=== PATIENT | female | born 1990 | race Caucasian/White ===

== ENCOUNTER 2017-11-11 11:13 | Emergency (ER) | payer MEDICAID ==
[~2017-11-11 11:13] MED LIST: CYCL10TA29 PO; HYDR-4309 PO; ONDA4TAB PO; PRED20TA6 PO; TEST30SO3 IM
--- NOTE | 2017-11-11 11:14 | ER Report ---
History and Physical Time Seen By MD: 11:18 Hx. of Stated Complaint: Migraine headache HPI/ROS Patient is a 27-year-old transgender female long history of migraines states normally takes [place] at home for migraines was nauseated would not able to take this at home since this is his typical headache intermittent right parietal headache has had recent CT scan per patient Remainder of the 14 system rev: Yes Allergies: Coded Allergies: amoxicillin (Verified Allergy, Mild, 07/08/17) metoclopramide (Verified Allergy, Mild, 07/08/17) prochlorperazine (Verified Allergy, Mild, 07/08/17) azithromycin (Verified Allergy, Unknown, 08/11/17) ketorolac (Verified Allergy, Unknown, 08/11/17) Home Meds Active Scripts Ondansetron (ZOFRAN ODT) 4 Mg Tab.rapdis, 4 MG PO Q6H Y for NAUSEA/VOMITING, # 20 TAB.ÁNGEL Prov:ERNESTINE MCBRIDE 11/11/17 Hydrocodone Bit/Acetaminophen (NORCO 5-325 TABLET) 1 Each Tablet, 1 EACH PO Q4- 6H Y for PAIN, #12 TAB Prov:ERNESTINE MCBRIDE APRN-C 11/11/17 Discontinued Reported Medications Testosterone (Testosterone) 30 Mg/1.5 Ml Per Actuation Ángel.heat treater head, 0.3 ML IM QWEEK 07/08/17 Discontinued Scripts Ondansetron (ZOFRAN ODT) 4 Mg Tab.rapdis, 4 MG PO Q6H Y for NAUSEA/VOMITING, #8 TAB.ÁNGEL Prov:CHRIS LEUNG PA-C 08/11/17 Hydrocodone Bit/Acetaminophen (NORCO 5-325 TABLET) 1 Each Tablet, 1 EACH PO Q4- 6H Y for PAIN, #12 TAB Prov:CHRIS LEUNG PA-C 08/11/17 Prednisone (PREDNISONE) 20 Mg Tablet, 20 MG PO BID, #10 TAB Prov:WILLIE TRINH 07/08/17 Cyclobenzaprine Hcl (CYCLOBENZAPRINE HCL) 10 Mg Tablet, 5-10 MG PO TID Y for MUSCLE SPASMS, #9 TAB Prov:WILLIE TRINH 07/08/17 Past Medical/Surgical History transgender, not currently on testosterone , migraines Reviewed Nurses Notes: Yes Old Medical Records Reviewed: Yes Hx Alcohol Use: Yes (occasional) Constitutional Vital Sign - Last 24 Hours 11/11/17 11/11/17 11/11/17 11/11/17 11:16 11:17 11:18 11:23 Temp 97.6 Pulse 91 90 Resp 20 22 B/P (MAP) 99/76 (84) 99/76 Pulse Ox 95 100 O2 Delivery Room Air 11/11/17 11/11/17 11/11/17 11/11/17 11:24 11:28 11:30 11:33 Pulse 85 84 Resp 27 B/P (MAP) 103/72 (82) 113/72 (86) Pulse Ox 94 93 11/11/17 11/11/17 11/11/17 11/11/17 11:38 11:43 11:48 11:53 Pulse 79 82 68 67 Pulse Ox 93 95 96 96 11/11/17 11/11/17 11/11/17 11/11/17 11:58 12:00 12:03 12:08 Pulse 73 67 B/P (MAP) 107/72 (84) Pulse Ox 98 92 90 11/11/17 11/11/17 11/11/17 11/11/17 12:18 12:23 12:28 12:33 Pulse 70 59 67 B/P (MAP) 106/67 (80) Pulse Ox 95 95 95 95 11/11/17 11/11/17 11/11/17 11/11/17 12:48 12:53 12:58 13:00 Pulse 66 61 B/P (MAP) 103/71 (82) Pulse Ox 95 96 97 11/11/17 11/11/17 11/11/17 11/11/17 13:03 13:08 13:13 13:22 Pulse 63 63 68 B/P (MAP) 99/68 (78) Pulse Ox 95 94 94 11/11/17 13:23 Pulse 63 B/P (MAP) 99/68 (78) Pulse Ox 94 O2 Delivery Room Air Physical Exam 27-year-old female transgender alert and oriented no acute distress HEENT has normocephalic/atraumatic tympanic membranes are non-reddened throat is non- reddened neck is supple no JVD heart rate regular no murmurs rubs or gallops lungs clear to auscultation abdomen is soft bowel sounds 4 quadrants moves all extremities Medical Decision Making Data Points Result Diagram: 11/11/17 1144 Laboratory Hematology Test 11/11/17 11:44 Red Blood Count 5.18 M/uL (4.17-5.56) Mean Corpuscular Volume 92.2 fL (80.0-96.0) Mean Corpuscular Hemoglobin 31.2 pg (26.0-33.0) Mean Corpuscular Hemoglobin Concent 33.9 g/dL (32.0-36.0) Red Cell Distribution Width 13.2 % (11.5-14.5) Mean Platelet Volume 8.4 fL (7.2-11.1) Neutrophils (%) (Auto) 58.6 % (39.4-72.5) Lymphocytes (%) (Auto) 30.1 % (17.6-49.6) Monocytes (%) (Auto) 9.3 % (4.1-12.4) Eosinophils (%) (Auto) 1.2 % (0.4-6.7) Basophils (%) (Auto) 0.0 % (0.3-1.4) Nucleated RBC Relative Count (auto) 0.2 /100WBC Neutrophils # (Auto) 2.7 K/uL (2.0-7.4) Lymphocytes # (Auto) 1.4 K/uL (1.3-3.6) Monocytes # (Auto) 0.4 K/uL (0.3-1.0) Eosinophils # (Auto) 0.1 K/uL (0.0-0.5) Basophils # (Auto) 0.0 K/uL (0.0-0.1) Nucleated RBC Absolute Count (auto) 0.01 K/uL Erythrocyte Sedimentation Rate 5 mm/HOUR (0-20) Chemistry Test 11/11/17 11:44 White Blood Count 4.6 k/uL (4.5-11.0) Red Blood Count 5.18 M/uL (4.17-5.56) Hemoglobin 16.2 g/dL (12.0-16.0) Hematocrit 47.8 % (34.0-47.0) Mean Corpuscular Volume 92.2 fL (80.0-96.0) Mean Corpuscular Hemoglobin 31.2 pg (26.0-33.0) Mean Corpuscular Hemoglobin Concent 33.9 g/dL (32.0-36.0) Red Cell Distribution Width 13.2 % (11.5-14.5) Platelet Count 237 K/uL (150-450) Mean Platelet Volume 8.4 fL (7.2-11.1) Neutrophils (%) (Auto) 58.6 % (39.4-72.5) Lymphocytes (%) (Auto) 30.1 % (17.6-49.6) Monocytes (%) (Auto) 9.3 % (4.1-12.4) Eosinophils (%) (Auto) 1.2 % (0.4-6.7) Basophils (%) (Auto) 0.0 % (0.3-1.4) Nucleated RBC Relative Count (auto) 0.2 /100WBC Neutrophils # (Auto) 2.7 K/uL (2.0-7.4) Lymphocytes # (Auto) 1.4 K/uL (1.3-3.6) Monocytes # (Auto) 0.4 K/uL (0.3-1.0) Eosinophils # (Auto) 0.1 K/uL (0.0-0.5) Basophils # (Auto) 0.0 K/uL (0.0-0.1) Nucleated RBC Absolute Count (auto) 0.01 K/uL Erythrocyte Sedimentation Rate 5 mm/HOUR (0-20) EKG/Imaging Imaging FACILITY: [facility] [place] PATIENT NAME: Antoinette Baldwin : 1990 MR: [id number] V: [id number] EXAM DATE: ORDERING PHYSICIAN: ERNESTINE MCBRIDE TECHNOLOGIST: [place] [facility] [place] : 1990 Visit/Account:[id number] Date of Sevice: 11/11/2017 CT OF THE BRAIN WITHOUT CONTRAST HISTORY: Headache PROCEDURE: 3.0 mm contiguous axial sections were performed through the brain. Sagittal and coronal reformats were submitted. COMPARISON: None FINDINGS: BRAIN: Brain and intracranial structures: There is no mass lesion, hemorrhage or acute infarct. The ventricles are normal in size without midline shift. There is significant streak artifact from the device on the right temporoparietal scalp. Orbits (included portions): Normal. Scalp: Normal. Skull: Normal. Paranasal sinuses and mastoid air cells (included portions): Mild mucosal thickening in the right maxillary sinus. IMPRESSION: No evidence of acute intracranial abnormality. One of the following dose optimization techniques was utilized in the performance of this exam: Automated exposure control; adjustment of the mA and/ or kV according to the patient's size; or use of an iterative reconstruction technique. Specific details can be referenced in the facility's radiology CT exam operational policy. Report Dictated By: Vonnie Herrera MD at 11/11/2017 12:58 PM Report E-Signed By: Vonnie Herrera MD at 11/11/2017 1:06 PM ED Course/Re-evaluation Clinical Indication for ER IV: Hydration ED Course Given a liter of normal saline then 50 g Zofran 4 mg and negative lab work negative CT head send him home with medication for pain and nausea follow with primary care physician Re-evaluation pain much better . home and rest today Decision to Disposition Date: Nov 11, 2017 Decision to Disposition Time: 13:15 Depart Departure Latest Vital Signs Vital Signs Date Time Temp Pulse Resp B/P (MAP) Pulse Ox O2 Delivery O2 Flow Rate FiO2 11/11/17 13:23 63 99/68 (78) 94 Room Air 11/11/17 11:28 27 11/11/17 11:17 97.6 Impression: Primary Impression: Migraine Condition: Improved Disposition: HOME OR SELF-CARE Referrals: [facility] 2 Days New Scripts Ondansetron (ZOFRAN ODT) 4 Mg Tab.rapdis 4 MG PO Q6H Y for NAUSEA/VOMITING, #20 TAB.ÁNGEL Prov: ERNESTINE MCBRIDE 11/11/17 Hydrocodone Bit/Acetaminophen (NORCO 5-325 TABLET) 1 Each Tablet 1 EACH PO Q4-6H Y for PAIN, #12 TAB Prov: ERNESTINE MCBRIDE 11/11/17 Patient Instructions: Migraine Headache (ED) Additional Instructions: Take hydrocodone and Zofran as ordered follow-up with primary care physician in 2 days ERNESTINE MCBRIDE Nov 11, 2017 11:14
[2017-11-11] MEDS ORDERED: NS(*) 0.9% 1000 ML BAG 1,000 ML IV ONE (11:31)
[2017-11-11] MEDS ORDERED: ONDANSETRON 4 MG/2 ML VIAL IVP ONE (11:35)
[2017-11-11] MEDS ORDERED: fentaNYL CITR 100 MCG/2 ML AMP IVP ONE (11:35)
[2017-11-11 12:11] LABS: PLATELET COUNT, AUTOMATED 237 K/uL (150-450)
--- NOTE | 2017-11-11 13:09 | RADIOLOGY IMAGING REPORT ---
[place] [facility] [place]: Antoinette Baldwin : 1990 MR: [id number] V: [id number] EXAM DATE: ORDERING PHYSICIAN: ERNESTINE MCBRIDE TECHNOLOGIST: Location: [facility] Patient: Antoinette Baldwin : 1990 Visit/Account:[id number] Date of Sevice: 11/11/2017 CT OF THE BRAIN WITHOUT CONTRAST HISTORY: Headache PROCEDURE: 3.0 mm contiguous axial sections were performed through the brain. Sagittal and coronal r eformats were submitted. COMPARISON: None FINDINGS: BRAIN: Brain and intracranial structures: There is no mass lesion, hemorrhage or acute infarct. The ventricl es are normal in size without midline shift. There is significant streak artifact from the device on the right temporoparietal scalp. Orbits (included portions): Normal. Scalp: Normal. Skull: Normal. Paranasal sinuses and mastoid air cells (included portions): Mild mucosal thickening in the right max illary sinus. IMPRESSION: No evidence of acute intracranial abnormality. One of the following dose optimization techniques was utilized in the performance of this exam: Autom ated exposure control; adjustment of the mA and/or kV according to the patient's size; or use of an i terative reconstruction technique. Specific details can be referenced in the facility's radiology C T exam operational policy. Report Dictated By: Vonnie Herrera MD at 11/11/2017 12:58 PM Report E-Signed By: Vonnie Herrera MD at 11/11/2017 1:06 PM WSN:[id number]
[2017-11-11] MEDS ORDERED: ONDA4TAB PO (13:19)
[2017-11-11] MEDS ORDERED: HYDR-4309 PO (13:19)
[2017-11-11 13:23] VITALS: BP 99/68
== END 2017-11-11 13:35 | disposition home or self-care (01) ==
LOC: ER 11:19
DX: G43.909 Migraine, unspecified, not intractable, without status migrainosus (principal)
CPT/HCPCS: 70450; 85025; 85651; 96361; 96374; 96375; 99284; J2405; J3010; J7030

== ENCOUNTER 2018-01-18 23:18 | Emergency (ER) | payer MEDICAID ==
[~2018-01-18 23:18] MED LIST changes: -LOR5/325 PO
--- NOTE | 2018-01-19 00:38 | ER Report ---
History and Physical Time Seen By MD: 00:37 HPI/ROS CHIEF COMPLAINT: abdominal pain HISTORY OF PRESENT ILLNESS: This is a 27 year old female. She had onset of left lower abdominal pain yesterday. Pain does not radiate. It does worsen with movement. No changes in bowel movements, two normal movements today, no diarrhea. No blood in stool or melena. Normal urination. Has had similar pain in the past, unknown cause. Has had muscle spasms in the past. Currently on testosterone therapy for changing sex. No fevers or chills. REVIEW OF SYSTEMS: Constitutional: No fever or chills. Eyes: No vision changes. ENT: No sore throat. No congestion. Cardiovascular: No chest pain. Respiratory: No shortness of breath. Gastrointestinal: As above. Genitourinary: As above. Musculoskeletal: No other musculoskeletal pain. Skin: No rashes. Allergies: Coded Allergies: amoxicillin (Verified Allergy, Mild, 01/19/18) metoclopramide (Verified Allergy, Mild, 01/19/18) prochlorperazine (Verified Allergy, Mild, 01/19/18) azithromycin (Verified Allergy, Unknown, 01/19/18) ketorolac (Verified Allergy, Unknown, 01/19/18) Home Meds Active Scripts Ondansetron (ZOFRAN ODT) 4 Mg Tab.rapdis, 4 MG PO Q6H Y for NAUSEA/VOMITING, # 20 TAB.ÁNGEL 0 Refills Prov:NEVA KNOX MD 01/19/18 Hydrocodone Bit/Acetaminophen (HYDROCODON-ACETAMINOPHEN 5-325) 1 Each Tablet, 1 EACH PO Q4H Y for PAIN, #12 TAB 0 Refills Prov:NEVA KNOX MD 01/19/18 Discontinued Scripts Ondansetron (ZOFRAN ODT) 4 Mg Tab.rapdis, 4 MG PO Q6H Y for NAUSEA/VOMITING, # 20 TAB.ÁNGEL Prov:ERNESTINE MCBRIDE APRN-C 11/11/17 Hydrocodone Bit/Acetaminophen (NORCO 5-325 TABLET) 1 Each Tablet, 1 EACH PO Q4- 6H Y for PAIN, #12 TAB Prov:ERNESTINE MCBRIDE APRN-C 11/11/17 Reviewed Nurses Notes: Yes Hx Alcohol Use: Yes (occasional) Constitutional Vital Sign - Last 24 Hours 4/1/01/19/18 01/19/18 01/19/18 00:18 00:28 00:33 01:03 Temp 98.5 Pulse ??? 84 84 80 Resp 16 B/P (MAP) 113/75 Pulse Ox 93 94 92 93 O2 Delivery Room Air 01/19/18 01/19/18 01/19/18 01/19/18 01:20 03:30 03:45 03:50 Pulse 94 70 67 71 Pulse Ox 91 90 89 01/19/18 01/19/18 01/19/18 01/19/18 04:05 04:20 04:35 05:33 Pulse 79 76 61 B/P (MAP) 102/62 (75) Pulse Ox 90 92 91 01/19/18 01/19/18 05:35 05:50 Pulse 66 58 Pulse Ox 94 91 Physical Exam General Appearance: The patient is alert. No acute distress. Eyes: Pupils are equal, round. No pallor, injection or icterus. ENT: Mucous membranes are moist. Normal oral mucosa. Posterior oropharynx is normal. Neck: Supple and non tender. Respiratory: Breathing easily and unlabored. Lungs are clear to auscultation. Cardiovascular: Regular rate and rhythm. No murmurs, gallops or rubs. Normal capillary refill. Gastrointestinal: Abdomen is tender in left lower abdomen. Nondistended. No rebound or guarding. Neurological: Alert and oriented x3. No focal neurologic deficits Skin: Warm and dry. DIFFERENTIAL DIAGNOSIS: After history and physical exam, differential diagnosis was considered for abdominal pain including but not limited to gastroenteritis, diverticulitis, ovarian problems, and urinary tract infection. Medical Decision Making Data Points Result Diagram: 01/19/18 0053 01/19/18 0053 Laboratory Hematology Test 01/19/18 00:53 01/19/18 05:32 Red Blood Count 5.18 M/uL (4.17-5.56) Mean Corpuscular Volume 89.6 fL (80.0-96.0) Mean Corpuscular Hemoglobin 30.8 pg (26.0-33.0) Mean Corpuscular Hemoglobin Concent 34.3 g/dL (32.0-36.0) Red Cell Distribution Width 14.2 % (11.5-14.5) Mean Platelet Volume 8.5 fL (7.2-11.1) Neutrophils (%) (Auto) 45.4 % (39.4-72.5) Lymphocytes (%) (Auto) 40.0 % (17.6-49.6) Monocytes (%) (Auto) 11.0 % (4.1-12.4) Eosinophils (%) (Auto) 2.7 % (0.4-6.7) Basophils (%) (Auto) 0.9 % (0.3-1.4) Nucleated RBC Relative Count (auto) 0.1 /100WBC Neutrophils # (Auto) 3.1 K/uL (2.0-7.4) Lymphocytes # (Auto) 2.8 K/uL (1.3-3.6) Monocytes # (Auto) 0.8 K/uL (0.3-1.0) Eosinophils # (Auto) 0.2 K/uL (0.0-0.5) Basophils # (Auto) 0.1 K/uL (0.0-0.1) Nucleated RBC Absolute Count (auto) 0.00 K/uL Sodium Level 141 mmol/L (137-145) Potassium Level 3.4 mmol/L (3.5-5.0) Chloride Level 103 mmol/L (98-107) Carbon Dioxide Level 27 mmol/L (22-31) Blood Urea Nitrogen 14 mg/dl (7-18) Creatinine 0.80 mg/dl (0.52-1.04) Glomerular Filtration Rate Calc > 60.0 Random Glucose 110 mg/dl (75-110) Calcium Level 9.1 mg/dl (8.4-10.2) Total Bilirubin 0.4 mg/dl (0.2-1.3) Aspartate Amino Transf (AST/SGOT) 23 U/L (0-35) Alanine Aminotransferase (ALT/SGPT) 22 U/L (0-56) Alkaline Phosphatase 92 U/L (0-126) C-Reactive Protein < 0.5 mg/dl (<1.0) Total Protein 7.1 gm/dl (6.3-8.2) Albumin 4.0 g/dl (3.5-5.0) Human Chorionic Gonadotropin, Qual Negative (NEGATIVE) Urine Color Yellow Urine Clarity Cloudy Urine pH 7.0 pH (4.8-9.5) Urine Specific [place] 1.059 Urine Protein Negative mg/dL (NEGATIVE) Urine Glucose (UA) Negative mg/dL (NEGATIVE) Urine Ketones Negative mg/dL (NEGATIVE) Urine Blood Negative (NEGATIVE) Urine Nitrite Negative (NEGATIVE) Urine Bilirubin Negative (NEGATIVE) Urine Urobilinogen Negative mg/dL (0.2-1.9) Urine Leukocyte Esterase Small (NEGATIVE) Urine RBC 2 /HPF (0-2/HPF) Urine WBC 10 /HPF (0-5/HPF) Urine Squamous Epithelial Cells Moderate /LPF (</=FEW) Urine Bacteria Negative /HPF (NONE-FEW) Urine Mucus None /HPF (NONE-FEW) Urine Yeast (Budding) Many /HPF Chemistry Test 01/19/18 00:53 01/19/18 05:32 White Blood Count 6.9 k/uL (4.5-11.0) Red Blood Count 5.18 M/uL (4.17-5.56) Hemoglobin 15.9 g/dL (12.0-16.0) Hematocrit 46.5 % (34.0-47.0) Mean Corpuscular Volume 89.6 fL (80.0-96.0) Mean Corpuscular Hemoglobin 30.8 pg (26.0-33.0) Mean Corpuscular Hemoglobin Concent 34.3 g/dL (32.0-36.0) Red Cell Distribution Width 14.2 % (11.5-14.5) Platelet Count 213 K/uL (150-450) Mean Platelet Volume 8.5 fL (7.2-11.1) Neutrophils (%) (Auto) 45.4 % (39.4-72.5) Lymphocytes (%) (Auto) 40.0 % (17.6-49.6) Monocytes (%) (Auto) 11.0 % (4.1-12.4) Eosinophils (%) (Auto) 2.7 % (0.4-6.7) Basophils (%) (Auto) 0.9 % (0.3-1.4) Nucleated RBC Relative Count (auto) 0.1 /100WBC Neutrophils # (Auto) 3.1 K/uL (2.0-7.4) Lymphocytes # (Auto) 2.8 K/uL (1.3-3.6) Monocytes # (Auto) 0.8 K/uL (0.3-1.0) Eosinophils # (Auto) 0.2 K/uL (0.0-0.5) Basophils # (Auto) 0.1 K/uL (0.0-0.1) Nucleated RBC Absolute Count (auto) 0.00 K/uL Glomerular Filtration Rate Calc > 60.0 Calcium Level 9.1 mg/dl (8.4-10.2) Total Bilirubin 0.4 mg/dl (0.2-1.3) Aspartate Amino Transf (AST/SGOT) 23 U/L (0-35) Alanine Aminotransferase (ALT/SGPT) 22 U/L (0-56) Alkaline Phosphatase 92 U/L (0-126) C-Reactive Protein < 0.5 mg/dl (<1.0) Total Protein 7.1 gm/dl (6.3-8.2) Albumin 4.0 g/dl (3.5-5.0) Human Chorionic Gonadotropin, Qual Negative (NEGATIVE) Urine Color Yellow Urine Clarity Cloudy Urine pH 7.0 pH (4.8-9.5) Urine Specific [place] 1.059 Urine Protein Negative mg/dL (NEGATIVE) Urine Glucose (UA) Negative mg/dL (NEGATIVE) Urine Ketones Negative mg/dL (NEGATIVE) Urine Blood Negative (NEGATIVE) Urine Nitrite Negative (NEGATIVE) Urine Bilirubin Negative (NEGATIVE) Urine Urobilinogen Negative mg/dL (0.2-1.9) Urine Leukocyte Esterase Small (NEGATIVE) Urine RBC 2 /HPF (0-2/HPF) Urine WBC 10 /HPF (0-5/HPF) Urine Squamous Epithelial Cells Moderate /LPF (</=FEW) Urine Bacteria Negative /HPF (NONE-FEW) Urine Mucus None /HPF (NONE-FEW) Urine Yeast (Budding) Many /HPF Urinalysis Test 01/19/18 05:32 Urine Color Yellow Urine Clarity Cloudy Urine pH 7.0 pH (4.8-9.5) Urine Specific [place] 1.059 Urine Protein Negative mg/dL (NEGATIVE) Urine Glucose (UA) Negative mg/dL (NEGATIVE) Urine Ketones Negative mg/dL (NEGATIVE) Urine Blood Negative (NEGATIVE) Urine Nitrite Negative (NEGATIVE) Urine Bilirubin Negative (NEGATIVE) Urine Urobilinogen Negative mg/dL (0.2-1.9) Urine Leukocyte Esterase Small (NEGATIVE) Urine RBC 2 /HPF (0-2/HPF) Urine WBC 10 /HPF (0-5/HPF) Urine Squamous Epithelial Cells Moderate /LPF (</=FEW) Urine Bacteria Negative /HPF (NONE-FEW) Urine Mucus None /HPF (NONE-FEW) Urine Yeast (Budding) Many /HPF EKG/Imaging Imaging CT scan was done and is negative. Pelvis ultrasound done and negative. ED Course/Re-evaluation Clinical Indication for ER IV: Hydration, IV Access ED Course Morphine and Zofran given IV to help with pain during her evaluation. Evaluation including imaging and labs as noted above are negative. Reviewed this with the patient. Could be other GI issue and recommended follow-up with GI specialist. Also consider possibility of abdominal wall muscle pain Decision to Disposition Date: Jan 19, 2018 Decision to Disposition Time: 06:05 Depart Departure Latest Vital Signs Vital Signs Date Time Temp Pulse Resp B/P (MAP) Pulse Ox O2 Delivery O2 Flow Rate FiO2 01/19/18 05:50 58 91 01/19/18 05:33 102/62 (75) 01/19/18 00:28 98.5 16 Room Air Impression: Primary Impression: Abdominal pain Condition: Improved Disposition: HOME OR SELF-CARE New Scripts Ondansetron (ZOFRAN ODT) 4 Mg Tab.rapdis 4 MG PO Q6H Y for NAUSEA/VOMITING, #20 TAB.ÁNGEL 0 Refills Prov: NEVA KNOX MD 01/19/18 Hydrocodone Bit/Acetaminophen (HYDROCODON-ACETAMINOPHEN 5-325) 1 Each Tablet 1 EACH PO Q4H Y for PAIN, #12 TAB 0 Refills Prov: NEVA KNOX MD 01/19/18 Patient Instructions: Acute Abdominal Pain (ED) Additional Instructions: Labs and imaging were normal tonight. Pain could come from muscle spasm, strain, or other GI problem. Consider follow-up with GI specialist if the pain persists. Take Lortab 5/325, one every 4 hours as needed for pain. Take Zofran 4mg, one every 6 hours as needed for nausea. Problem Qualifiers Primary Impression: Abdominal pain Abdominal location: left lower quadrant Qualified Codes: R10.32 - Left lower quadrant pain NEVA KNOX MD Jan 19, 2018 00:38
[2018-01-19] MEDS ORDERED: IOPAMIDOL 76% 75 ML INFUS BTL 75 ML ONE (00:53)
[2018-01-19] MEDS ORDERED: MORPHINE 4 MG/ML SDV IVP ONE ×2 (01:00→03:25)
[2018-01-19] MEDS ORDERED: ONDANSETRON 4 MG/2 ML VIAL IVP ONE ×2 (01:00→02:55)
[2018-01-19 01:08] LABS: PLATELET COUNT, AUTOMATED 213 K/uL (150-450)
[2018-01-19] MEDS ORDERED: NS(*) 0.9% 1000 ML BAG 1,000 ML IV ONE (05:12)
[2018-01-19 05:33] VITALS: BP 102/62
[2018-01-19] MEDS ORDERED: ACET/HYDROC 5/325MG TH ER ONLY 2 TAB/BOTTLE PO ONE (06:05)
[2018-01-19] MEDS ORDERED: ONDANSETRON 4 MG ODT TH SL ONE (06:05)
[2018-01-19] MEDS ORDERED: LOR5/325 PO (06:07)
[2018-01-19] MEDS ORDERED: ONDA4TAB PO (06:07)
--- NOTE | 2018-01-19 16:45 | RADIOLOGY IMAGING REPORT ---
FACILITY: [facility] - [place] PATIENT NAME: Antoinette Baldwin : 1990 MR: [id number] V: [id number] EXAM DATE: ORDERING PHYSICIAN: NEVA KNOX TECHNOLOGIST: Location: [facility] Patient: Antoinette Baldwin : 1990 Visit/Account:[id number] Date of Sevice: 01/19/2018 ABDOMEN/PELVIS WITH CONTRAST COMPARISONS: CT of the abdomen and pelvis without contrast dated August 11, 2017 ADDITIONAL PERTINENT HISTORY: Left lower abdominal pain TECHNIQUE: Multiple axial images were obtained from the lung bases through the lesser trochanters bef ore and after the IV administration of IV contrast. One of the following dose optimization technique s was utilized in the performance of this exam: Automated exposure control; adjustment of the mA and/ or kV according to the patient's size; or use of an iterative reconstruction technique. Specific de tails can be referenced in the facility's radiology CT exam operational policy. CONTRAST: 75 ml of Isovue-370 FINDINGS: Lung bases: Negative. Free air and free fluid: None. Liver: Negative. Spleen: Negative. Kidneys, ureters and urinary bladder: Negative. Adrenal glands: Negative. Pancreas: Negative. Gallbladder: Negative. Bowel and mesentery: Negative including a normal-appearing appendix in the right lower quadrant.. Pelvic contents: Negative Lymph node assessment: Negative. Retroperitoneum: Negative. Abdominal vasculature: Negative. Surrounding soft tissues: Negative. Osseous structures: Negative. IMPRESSION: Normal CT of the abdomen and pelvis with contrast. Report Dictated By: Jeff Kelly MD at 01/19/2018 2:15 AM Report E-Signed By: Jeff Kelly MD at 01/19/2018 2:19 AM [id number]
--- NOTE | 2018-01-19 16:46 | RADIOLOGY IMAGING REPORT ---
FACILITY: [facility] PATIENT NAME: Antoinette Baldwin : 1990 MR: [id number] V: [id number] EXAM DATE: ORDERING PHYSICIAN: NEVA KNOX TECHNOLOGIST: Location: [facility] Patient: Antoinette Baldwin : 1990 Visit/Account:[id number] Date of Sevice: 01/19/2018 PELVIC Comparisons: None. Additional pertinent history: Left lower abdominal pain FINDINGS: Uterus: 7.0 x 4.0 x 5.4 cm. Negative. Endometrium. Negative. Measuring 7 mm. Right ovary: Negative. The right ovary measures 2.8 x 1.9 x 2.9 cm. Left ovary: Negative. The left ovary measures 2.8 x 2.0 x 2.7 cm . Free fluid: None. Pelvic vasculature: Negative. Bladder: Grossly negative. IMPRESSION: Normal pelvic sonogram Report Dictated By: Jeff Kelly MD at 01/19/2018 5:49 AM Report E-Signed By: Jeff Kelly MD at 01/19/2018 5:51 AM WSN:[id number]
== END 2018-01-19 06:21 | disposition home or self-care (01) ==
LOC: ER 23:51
DX: R10.32 Left lower quadrant pain (principal)
CPT/HCPCS: 74177; 76856; 81001; 84703; 85025; 86140; 87088; 96374; 96375; 96376; 99284; J2270; J2405; J7030; Q9967; S0119; 82040; 82247; 82310; 82374; 82435; 82565; 82947; 84075; 84132; 84155; 84295; 84450; 84460; 84520

== ENCOUNTER → 2018-01-18 | Outpatient (REF) | payer MEDICAID ==
[~2018-01-18] MED LIST changes: +LOR5/325 PO
[2018-01-18 13:46] LABS: PLATELET COUNT, AUTOMATED 229 K/uL (150-450)
== END ==
PROVIDERS: ATTEND Physician Assistant Medical
DX: R10.9 Unspecified abdominal pain (principal)
CPT/HCPCS: 82040; 82247; 82310; 82374; 82435; 82565; 82947; 84075; 84132; 84155; 84295; 84450; 84460; 84520; 85025

== ENCOUNTER 2018-03-05 23:35 | Emergency (ER) | payer MEDICAID ==
[~2018-03-05 23:35] MED LIST changes: +LOR5/325 PO
--- NOTE | 2018-03-05 23:50 | ER Report ---
History and Physical Time Seen By : 23:53 HPI/ROS CHIEF COMPLAINT: having thought of harming roommate and having episodes of loss of memory HISTORY OF PRESENT ILLNESS: This is a 28 year of female. She is transgender taking testosterone shots and prefers male pronouns. She has not had a sex change operation, and still legally female. She is deaf, and can read lips well. She came to the ER with her boss, who can sign, but we are currently writing back and forth rather than use her boss to help interpret for us. We have called a contact number for a sign board erector, but have not been able to obtain someone to help us at this point. She came to the ER tonight because of having thoughts of harming her roommate. These thoughts are very distressing for her and she was requesting admission to get help with this. She has alot of time missing from her day today. She uses the term "dissociating" for this time loss. She states that she is otherwise healthy. She takes a weekly testosterone shot, 0.4mg IM and requested that we help give her shot tonight. She denies suicidal thought. She denies self harm behaviors. She does use marijuana, but no other drugs. Denies alcohol. No recent illnesses. She states that she feels like she might have PTSD or bipolar disorder, but no prior diagnoses. She is very anxious and not sleeping well. She did request something to help with this and requested some Xanax. She says that she was on Ativan in the past, but was taken off of this because of concerns of possibly getting addicted to this. Allergies: Coded Allergies: amoxicillin (Verified Allergy, Mild, 03/06/18) metoclopramide (Verified Allergy, Mild, 03/06/18) prochlorperazine (Verified Allergy, Mild, 03/06/18) azithromycin (Verified Allergy, Unknown, 03/06/18) ketorolac (Verified Allergy, Unknown, 03/06/18) Home Meds Reported Medications Testosterone Cypionate (Testone Cik) 200 Mg/1 Ml Kit, 0.4 ML IM [id number] 03/06/18 Discontinued Scripts Ondansetron (ZOFRAN ODT) 4 Mg Tab.rapdis, 4 MG PO Q6H Y for NAUSEA/VOMITING, # 20 TAB.ÁNGEL 0 Refills Prov:NEVA KNOX MD 01/19/18 Hydrocodone Bit/Acetaminophen (HYDROCODON-ACETAMINOPHEN 5-325) 1 Each Tablet, 1 EACH PO Q4H Y for PAIN, #12 TAB 0 Refills Prov:NEVA KNOX MD 01/19/18 Reviewed Nurses Notes: Yes Hx Substance Use Disorder: Yes (marijuana) Hx Alcohol Use: Yes (occasional) Constitutional Vital Sign - Last 24 Hours 03/05/18 03/05/18 03/06/18 23:43 23:49 00:00 Temp 99.1 Pulse 83 Resp B/P (MAP) 115/77 (90) 115/77 115/87 (96) Pulse Ox 72 93 80 O2 Delivery Room Air Physical Exam General Appearance: The patient is alert. No acute distress. Eyes: Pupils are equal, round. No pallor, injection or icterus. Reactive to light, extraocular movements are intact. ENT: Mucous membranes are moist. Normal oral mucosa. Posterior oropharynx is normal. Normal tympanic membranes and canals. Neck: Supple and non tender. No lymphadenopathy. Respiratory: Lungs are clear to auscultation. Cardiovascular: Regular rate and rhythm. No murmurs, gallops or rubs. Gastrointestinal: Abdomen is soft and non tender. Nondistended. Normal active bowel sounds. Neurological: Alert and oriented x3. Skin: Warm and dry. Musculoskeletal: No tenderness in palpation of the cervical, thoracic and lumbar spine. DIFFERENTIAL DIAGNOSIS: After history and physical exam, differential diagnosis was considered for thoughts of harming others and. Seventh time that are unaccounted for and her memory. Medical Decision Making Data Points Result Diagram: 03/06/18 0040 03/06/18 0040 Laboratory Hematology Test 03/06/18 00:00 03/06/18 00:40 Urine Color Yellow Urine Clarity Clear Urine pH 6.0 pH (4.8-9.5) Urine Specific [place] 1.013 Urine Protein Negative mg/dL (NEGATIVE) Urine Glucose (UA) Negative mg/dL (NEGATIVE) Urine Ketones Negative mg/dL (NEGATIVE) Urine Blood Negative (NEGATIVE) Urine Nitrite Negative (NEGATIVE) Urine Bilirubin Negative (NEGATIVE) Urine Urobilinogen Negative mg/dL (0.2-1.9) Urine Leukocyte Esterase Negative (NEGATIVE) Urine RBC 1 /HPF (0-2/HPF) Urine WBC 4 /HPF (0-5/HPF) Urine Squamous Epithelial Cells Many /LPF (</=FEW) Urine Bacteria Few /HPF (NONE-FEW) Urine Mucus Few /HPF (NONE-FEW) Urine HCG, Qualitative Negative (NEGATIVE) Urine Opiates Screen Negative Urine Barbiturates Screen Negative Ur Tricyclic Antidepressants Screen Negative Urine Phencyclidine Screen Negative Urine Amphetamines Screen Negative Urine Benzodiazepines Screen Negative Urine Cocaine Screen Negative Urine Cannabinoids Screen Positive Red Blood Count 4.81 M/uL (4.17-5.56) Mean Corpuscular Volume 91.2 fL (80.0-96.0) Mean Corpuscular Hemoglobin 31.7 pg (26.0-33.0) Mean Corpuscular Hemoglobin Concent 34.8 g/dL (32.0-36.0) Red Cell Distribution Width 15.2 % (11.5-14.5) Mean Platelet Volume 8.5 fL (7.2-11.1) Neutrophils (%) (Auto) 49.4 % (39.4-72.5) Lymphocytes (%) (Auto) 37.3 % (17.6-49.6) Monocytes (%) (Auto) 11.4 % (4.1-12.4) Eosinophils (%) (Auto) 1.1 % (0.4-6.7) Basophils (%) (Auto) 0.8 % (0.3-1.4) Nucleated RBC Relative Count (auto) 0.1 /100WBC Neutrophils # (Auto) 3.1 K/uL (2.0-7.4) Lymphocytes # (Auto) 2.3 K/uL (1.3-3.6) Monocytes # (Auto) 0.7 K/uL (0.3-1.0) Eosinophils # (Auto) 0.1 K/uL (0.0-0.5) Basophils # (Auto) 0.1 K/uL (0.0-0.1) Nucleated RBC Absolute Count (auto) 0.01 K/uL Sodium Level 134 mmol/L (137-145) Potassium Level 3.2 mmol/L (3.5-5.0) Chloride Level 103 mmol/L (98-107) Carbon Dioxide Level 26 mmol/L (22-31) Blood Urea Nitrogen 9 mg/dl (7-18) Creatinine 0.80 mg/dl (0.52-1.04) Glomerular Filtration Rate Calc > 60.0 Random Glucose 87 mg/dl (75-110) Calcium Level 9.7 mg/dl (8.4-10.2) Magnesium Level 1.9 mg/dl (1.7-2.2) Total Bilirubin 0.4 mg/dl (0.2-1.3) Aspartate Amino Transf (AST/SGOT) 17 U/L (0-35) Alanine Aminotransferase (ALT/SGPT) 25 U/L (0-56) Alkaline Phosphatase 73 U/L (0-126) Total Protein 6.6 gm/dl (6.3-8.2) Albumin 3.9 g/dl (3.5-5.0) Salicylates Level < 10 mg/L Salicylate Last Dose Date unk Acetaminophen Level < 10 ug/ml Serum Alcohol < 10 mg/dl Chemistry Test 03/06/18 00:00 03/06/18 00:40 Urine Color Yellow Urine Clarity Clear Urine pH 6.0 pH (4.8-9.5) Urine Specific [place] 1.013 Urine Protein Negative mg/dL (NEGATIVE) Urine Glucose (UA) Negative mg/dL (NEGATIVE) Urine Ketones Negative mg/dL (NEGATIVE) Urine Blood Negative (NEGATIVE) Urine Nitrite Negative (NEGATIVE) Urine Bilirubin Negative (NEGATIVE) Urine Urobilinogen Negative mg/dL (0.2-1.9) Urine Leukocyte Esterase Negative (NEGATIVE) Urine RBC 1 /HPF (0-2/HPF) Urine WBC 4 /HPF (0-5/HPF) Urine Squamous Epithelial Cells Many /LPF (</=FEW) Urine Bacteria Few /HPF (NONE-FEW) Urine Mucus Few /HPF (NONE-FEW) Urine HCG, Qualitative Negative (NEGATIVE) Urine Opiates Screen Negative Urine Barbiturates Screen Negative Ur Tricyclic Antidepressants Screen Negative Urine Phencyclidine Screen Negative Urine Amphetamines Screen Negative Urine Benzodiazepines Screen Negative Urine Cocaine Screen Negative Urine Cannabinoids Screen Positive White Blood Count 6.3 k/uL (4.5-11.0) Red Blood Count 4.81 M/uL (4.17-5.56) Hemoglobin 15.2 g/dL (12.0-16.0) Hematocrit 43.9 % (34.0-47.0) Mean Corpuscular Volume 91.2 fL (80.0-96.0) Mean Corpuscular Hemoglobin 31.7 pg (26.0-33.0) Mean Corpuscular Hemoglobin Concent 34.8 g/dL (32.0-36.0) Red Cell Distribution Width 15.2 % (11.5-14.5) Platelet Count 204 K/uL (150-450) Mean Platelet Volume 8.5 fL (7.2-11.1) Neutrophils (%) (Auto) 49.4 % (39.4-72.5) Lymphocytes (%) (Auto) 37.3 % (17.6-49.6) Monocytes (%) (Auto) 11.4 % (4.1-12.4) Eosinophils (%) (Auto) 1.1 % (0.4-6.7) Basophils (%) (Auto) 0.8 % (0.3-1.4) Nucleated RBC Relative Count (auto) 0.1 /100WBC Neutrophils # (Auto) 3.1 K/uL (2.0-7.4) Lymphocytes # (Auto) 2.3 K/uL (1.3-3.6) Monocytes # (Auto) 0.7 K/uL (0.3-1.0) Eosinophils # (Auto) 0.1 K/uL (0.0-0.5) Basophils # (Auto) 0.1 K/uL (0.0-0.1) Nucleated RBC Absolute Count (auto) 0.01 K/uL Glomerular Filtration Rate Calc > 60.0 Calcium Level 9.7 mg/dl (8.4-10.2) Magnesium Level 1.9 mg/dl (1.7-2.2) Total Bilirubin 0.4 mg/dl (0.2-1.3) Aspartate Amino Transf (AST/SGOT) 17 U/L (0-35) Alanine Aminotransferase (ALT/SGPT) 25 U/L (0-56) Alkaline Phosphatase 73 U/L (0-126) Total Protein 6.6 gm/dl (6.3-8.2) Albumin 3.9 g/dl (3.5-5.0) Salicylates Level < 10 mg/L Salicylate Last Dose Date unk Acetaminophen Level < 10 ug/ml Serum Alcohol < 10 mg/dl Toxicology Test 03/06/18 00:00 03/06/18 00:40 Urine Opiates Screen Negative Urine Barbiturates Screen Negative Ur Tricyclic Antidepressants Screen Negative Urine Phencyclidine Screen Negative Urine Amphetamines Screen Negative Urine Benzodiazepines Screen Negative Urine Cocaine Screen Negative Urine Cannabinoids Screen Positive Salicylates Level < 10 mg/L Salicylate Last Dose Date unk Acetaminophen Level < 10 ug/ml Serum Alcohol < 10 mg/dl Urinalysis Test 03/06/18 00:00 Urine Color Yellow Urine Clarity Clear Urine pH 6.0 pH (4.8-9.5) Urine Specific [place] 1.013 Urine Protein Negative mg/dL (NEGATIVE) Urine Glucose (UA) Negative mg/dL (NEGATIVE) Urine Ketones Negative mg/dL (NEGATIVE) Urine Blood Negative (NEGATIVE) Urine Nitrite Negative (NEGATIVE) Urine Bilirubin Negative (NEGATIVE) Urine Urobilinogen Negative mg/dL (0.2-1.9) Urine Leukocyte Esterase Negative (NEGATIVE) Urine RBC 1 /HPF (0-2/HPF) Urine WBC 4 /HPF (0-5/HPF) Urine Squamous Epithelial Cells Many /LPF (</=FEW) Urine Bacteria Few /HPF (NONE-FEW) Urine Mucus Few /HPF (NONE-FEW) Urine HCG, Qualitative Negative (NEGATIVE) ED Course/Re-evaluation ED Course The patient has signed in voluntarily. Discussed the case with Dr. Mills who accepted the patient for admission. Decision to Disposition Date: March 06, 2018 Decision to Disposition Time: 01:22 Depart Departure Latest Vital Signs Vital Signs Date Time Temp Pulse Resp B/P (MAP) Pulse Ox O2 Delivery O2 Flow Rate FiO2 03/06/18 00:00 115/87 (96) 80 03/05/18 23:49 99.1 83 18 Room Air Impression: Primary Impression: Obsessive thoughts of harming others Additional Impression: Anxiety Condition: Condition Unchanged Disposition: XFER TO [facility] Problem Qualifiers NEVA KNOX MD March 05, 2018 23:51
[2018-03-06] VITALS: BP 115/87
[2018-03-06] MEDS ORDERED: TEST200K IM (00:35)
[2018-03-06 00:50] LABS: PLATELET COUNT, AUTOMATED 204 K/uL (150-450)
[2018-03-06] MEDS ORDERED: ALPRAZolam 0.25 MG TAB PO ONE (01:00)
== END 2018-03-06 02:47 ==
LOC: ER 23:57
DX: F41.9 Anxiety disorder, unspecified (principal); R45.850 Homicidal ideations
CPT/HCPCS: 36415; 80305; 81001; 81025; 83735; 84443; 85025; 99285; G0480; 80320; 80329; 82040; 82247; 82310; 82374; 82435; 82565; 82947; 84075; 84132; 84155; 84295; 84450; 84460; 84520

== ENCOUNTER 2018-03-06 02:38 | Inpatient (IN) | payer MEDICAID ==
[~2018-03-06] VITALS: Ht 152.4 cm; Wt 54.4 kg
[~2018-03-06 02:38] MED LIST changes: +TEST200K IM
[2018-03-06] MEDS ORDERED: DIAZEPAM 5 MG TAB PO ONE (03:05)
[2018-03-06 03:56] VITALS: BP 108/66
[2018-03-06] MEDS ORDERED: MAG HYD/AL HYD/SIMETH 30ML UDC PO PRN (04:00)
[2018-03-06] MEDS ORDERED: ACETAMINOPHEN 325 MG TAB PO PRN (04:00)
[2018-03-06] MEDS: MULTIVITAMINS TAB PO SCH (08:17)
[2018-03-06] MEDS: hydrOXYzine PAMOATE 25 MG CAP PO PRN (12:21)
[2018-03-06 14:55] VITALS: BP 108/78
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
[2018-03-06] MEDS: MIRTAZAPINE 15 MG TAB PO SCH (21:27)
[2018-03-07 03:39] VITALS: BP 109/76
[2018-03-07] MEDS: MULTIVITAMINS TAB PO SCH (08:34)
[2018-03-07 12:40] VITALS: BP 108/68
--- NOTE | 2018-03-07 12:47 | BHS Progress Note ---
[facility] - Subjective Progress Notes Subjective Patient very cooperative today, stating that sleep had improved on Remeron, and anxiety lessened. Patient is taking an active role in treatment, overall, and will plan meeting with roommate and other friends in AM to resolve conflict and ensure safety. Mood improving, patient engaging in effective communication with staff, aided by scenic designer. Patient states no homicidal intentions toward roommate, but may have to live with her upon discharge for next two weeks, this will need to be addressed before patient discharges. Suicidal Ideation: None Homicidal Ideation: None [facility] - Objective Physical Exam Vital Signs Vital Signs Date Time Temp Pulse Resp B/P (MAP) Pulse Ox O2 Delivery O2 Flow Rate FiO2 03/07/18 03:39 98.5 95 109/76 (87) 95 Room Air 03/06/18 14:55 16 Muscle Strength and Tone: WNL Gait and Station: Steady [facility] Medications Reviewed: Side Effects, Benefits of Medication, Risks Allergies Reviewed: Yes Mental Status Exam General Appearance: Casual, Well Groomed, Good Eye Contact, Cooperative, Polite , Good Interaction, No Tearful, No Psychomotor Agitation, No Psychomotor Retardation, No Bizarre Mannerisms, No Tics Speech: No Clear, Spontaneous, No Normal Rate, No Normal Rhythm, No Normal Volume, No Normal Tone, No Rambling, Other (effective communication with sign lanquage.) Mood: Dysthmic/Depressed (improving) Affect: Full and Appropriate, Calm Thought Process: Organized, Logical, Goal Directed, No Loose Associations, No Flight of Ideas Thought Content: No Suicidal Ideation, No Homicidal Ideation (some anger toward roommate), No Delusions, No Auditory Halllucinations, No Visual Hallucinations, No Thought Broadcasting, No Ideas of Reference, No Obsessions, No Compulsions Cognition: Alert & Oriented-Person, Alert & Oriented-Place, Alert & Oriented- Time, Oyemj-Ozjjqdfw-Bscbyozvr Memory: Immediate, Recent, Remote Intelligence: Average Insight Judgment: Fair [facility] Assessment and Plan [id number] Encounter Date: March 07, 2018 [id number] Encounter Time: 10:00 [facility] Plan: Necessary Precautions, Individual/Group Therapy, Admin/Titrate Meds, Educate Patient Tobacco Medications: Not Appropriate Condition Multpiple Antipsychotics Used: No Problems: (1) Generalized anxiety disorder Status: Chronic (2) Adjustment disorder with anxious mood Status: Acute (3) Panic disorder Status: Chronic (4) Cannabis use disorder, severe, in controlled environment Status: Chronic Condition 1. continue hydroxizine and remeron. 2. meeting with roommate and friends in AM at 10:00 AM ALBERT HERNANDEZ MD March 07, 2018 12:46
[2018-03-07 15:45] VITALS: BP 98/68
[2018-03-07] MEDS: hydrOXYzine PAMOATE 25 MG CAP PO PRN (15:55)
[2018-03-07] MEDS: MIRTAZAPINE 15 MG TAB PO SCH (20:54)
[2018-03-08] MEDS ORDERED: hydrOXYzine 25 MG TAB PO SCH
[2018-03-08] MEDS ORDERED: MIRTAZAPINE 15 MG TAB PO SCH
[2018-03-08 01:21] VITALS: BP 102/72
[2018-03-08] MEDS ORDERED: ONDANSETRON 4 MG TAB PO ONE (08:30)
[2018-03-08] MEDS ORDERED: ACETAM/ASA/CAFFEINE 250/250/65 PO ONE (08:30)
[2018-03-08] MEDS: MULTIVITAMINS TAB PO SCH (08:30)
--- NOTE | 2018-03-08 10:15 | BHS Progress Note ---
[facility] - Subjective Progress Notes Subjective "I was really mad at her and felt out of control so I came here to settle down because of the miscommunication, I could never physically harm anyone." Lengthy discussion with two interpreters present at time of discharge plan, denies urge for harm to self or others, agrees with outpatient follow up and medication management Licensed Marine Engineer present signing to patient Denies depression, some anxiety regarding return to home, denies homicidal ideation Suicidal Ideation: None Homicidal Ideation: None [facility] - Objective Physical Exam Muscle Strength and Tone: WNL Gait and Station: Steady [facility] Medications Reviewed: Side Effects, Benefits of Medication, Risks Allergies Reviewed: Yes Mental Status Exam General Appearance: Casual, Well Groomed, Good Eye Contact, Cooperative, Polite , Good Interaction Speech: No Spontaneous, Other (deaf, use of reading instructor signing /bilateral deafness with cochlear implants) Mood: No Dysthmic/Depressed, Euthymic Affect: Full and Appropriate, Calm Thought Process: Organized, Logical, Goal Directed Thought Content: No Suicidal Ideation, No Homicidal Ideation (some anger toward roommate), No Delusions, No Auditory Halllucinations, No Visual Hallucinations, No Thought Broadcasting, No Ideas of Reference, No Obsessions, No Compulsions Cognition: Alert & Oriented-Person, Alert & Oriented-Place, Alert & Oriented- Time, Sndfw-Dcatlfri-Wcohrlwxg Memory: Immediate, Recent, Remote Intelligence: Average Insight Judgment: Fair Lab Vital Signs Date Time Temp Pulse Resp B/P (MAP) Pulse Ox O2 Delivery O2 Flow Rate FiO2 03/08/18 01:21 99.8 86 102/72 (82) 94 Room Air 03/07/18 15:45 16 Allergies Coded Allergies amoxicillin (Verified Allergy, Mild, 03/06/18) metoclopramide (Verified Allergy, Mild, 03/06/18) prochlorperazine (Verified Allergy, Mild, 03/06/18) azithromycin (Verified Allergy, Unknown, 03/06/18) ketorolac (Verified Allergy, Unknown, 03/06/18) [facility] Assessment and Plan Pota-ix-Nwjg Encounter Date: March 08, 2018 [id number] Encounter Time: 10:12 [facility] Plan: Necessary Precautions, Individual/Group Therapy, Admin/Titrate Meds, Educate Patient Tobacco Medications: Not Appropriate Condition Multpiple Antipsychotics Used: No Problems: (1) Generalized anxiety disorder Status: Chronic (2) Adjustment disorder with anxious mood Status: Acute (3) Cannabis use disorder, severe, in controlled environment Status: Chronic (4) Obsessive thoughts of harming others Status: Resolved Condition Discharge to home Encourage follow up w/outpatient providers for medication management, therapy Crisis line # provided, encourage use for worsening symptoms Return to the emergency room for suicidal/homicidal ideation HERBERT PEDERSEN NP March 08, 2018 10:15
[2018-03-08] MEDS ORDERED: HYDR25CA83 PO (11:06)
[2018-03-08] MEDS ORDERED: MIRT-17 PO (11:06)
[2018-03-08] MEDS ORDERED: MULT-859 PO (11:06)
[2018-03-08] MEDS: hydrOXYzine PAMOATE 25 MG CAP PO PRN (12:58)
--- NOTE | 2018-03-08 15:35 | DISCHARGE SUMMARY ---
DATE OF ADMISSION: March 05, 2018 DATE OF DISCHARGE: March 08, 2018 FINAL DIAGNOSES PER DIAGNOSTIC AND STATISTICAL MANUAL OF MENTAL DISORDERS, FIFTH EDITION 1. Generalized anxiety disorder. 2. Adjustment disorder with anxious mood. 3. Cannabis use disorder. 4. Bilateral deafness and associated stressors. 5. Problems related to interpersonal relationship stressors with roommate. REASON FOR ADMISSION, BRIEF HISTORY Patient is a 28-year-old, single, transgender female who presented to the Emergency Room on a voluntary basis, reporting thoughts of harming her female roommate. 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 Patient reported stress related to roommate and had been dealing with extreme rage and intrusive thoughts towards harming this individual. Upon further review and interview throughout the behavioral health stay, stating she would never have the ability to harm another individual, describing some guilt and shame associated with these thoughts. 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 In the middle of a move to a different housing facility and planning on working at [employer] for the [employer] starting March 24. Patient reports a history of anxiety and panic attacks throughout her life, has these episodes three to four times per week, and with a history of two previous inpatient hospitalizations in 2010 and 2013. Patient has had DVT in the past, currently not engaged with any outpatient services. No previous history of violence or suicide attempts. Patient was calm, cooperative with treatment recommendations throughout her stay, easy to engage, and participating actively in her treatment. Patient agreeable with ongoing outpatient services, and upon discharge interview, met with two sign language interpreters as well as patients , and discussed outpatient options for the deaf as well as medical management options. PHYSICAL EXAMINATION Please see emergency room notes for physical exam. VITAL SIGNS: At time of admit include temperature of 99.2, pulse of 70, respiratory rate 15, blood pressure 108/66, pulse oximetry 95% on room air. Vital signs at time of discharge include temperature of 99.8, pulse of 86, blood pressure 102/72, pulse oximetry 94% on room air. LABORATORY DATA CBC within normal limits. Chemistry panel within normal limits including slightly low sodium at 134, potassium was slightly low at 3.2. Thyroid stimulating hormone 1.64. Urine screen within normal limits with the exception of many squamous epithelial cells. Toxicology including salicylates, acetaminophen, serum alcohol level less than 10. Urine screen negative for opiates, barbiturates, tricyclics, phencyclidine, amphetamines, benzodiazepines , cocaine; positive for cannabinoids. CONSULTATIONS None. TREATMENT Patient participated in individual and group therapy. Patient was started on mirtazapine every p.m., targeting depression and anxiety. Patient also started on hydroxyzine 25 mg every four hours as needed for increased anxiety. Has taken both prior to discharge with reported benefit, and we will continue these prescriptions upon discharge. HOSPITAL COURSE Patient engaged with providers and was not deemed to be a threat towards discharging with consideration of harming roommate. Patient denies suicidal or homicidal ideation. Has been cooperative and has met with treatment and two interpreters at time of discharge interview. CONDITION OF PATIENT ON DISCHARGE Stable, considered a minimal risk to self or others. Patient is discharged to home. She was encouraged to abstain from all alcohol and illicit substances. DISCHARGE MEDICATIONS 1. Hydroxyzine 25 mg one p.o. by mouth every four hours as needed for anxiety. 2. Mirtazapine 50 mg one p.o. every bedtime. 3. Multivitamin one p.o. daily. 4. Testosterone injections as previously prescribed by outside provider. Patient is to take medications only as prescribed. Patient is encouraged to engage with outpatient medication management provider and individual therapy. Resources discussed and provided prior to discharge including persons trained with signing. The crisis line number is encouraged to use for worsening symptoms. Patient is to return to the Emergency Room for worsening symptoms, suicidal or homicidal ideations. Patient is competent and agreeable with the above discharge plan. [facility]ITAL[facility]
== END 2018-03-08 13:54 | disposition home or self-care (01) | DRG 880 ==
LOC: BHS 02:38
PROVIDERS: ADMIT Psychiatry & Neurology Psychiatry; ATTEND Psychiatry & Neurology Psychiatry
DX: F41.1 Generalized anxiety disorder (principal); F43.22 Adjustment disorder with anxiety; F12.20 Cannabis dependence, uncomplicated; F41.0 Panic disorder [episodic paroxysmal anxiety]; R45.850 Homicidal ideations; H91.93 Unspecified hearing loss, bilateral; Z86.718 Personal history of other venous thrombosis and embolism; Z81.1 Family history of alcohol abuse and dependence; Z81.8 Family history of other mental and behavioral disorders; Z88.0 Allergy status to penicillin; Z88.1 Allergy status to other antibiotic agents; Z88.8 Allergy status to other drugs, medicaments and biological substances; Z62.811 Personal history of psychological abuse in childhood; Z79.890 Hormone replacement therapy
CPT/HCPCS: 36415; 80305; 80320; 80329; 81001; 81025; 82040; 82247; 82310; 82374; 82435; 82565; 82947; 83735; 84075; 84132; 84155; 84295; 84443; 84450; 84460; 84520; 85025; 99285; Q0177; S0119

== ENCOUNTER 2018-03-17 04:48 | Emergency (ER) | payer MEDICAID ==
[~2018-03-17 04:48] MED LIST changes: +HYDR25CA83 PO; +MIRT-17 PO; +MULT-859 PO
--- NOTE | 2018-03-17 05:05 | ER Report ---
History and Physical Time Seen By MD: 04:56 HPI/ROS CHIEF COMPLAINT: Sore throat, strep exposure HISTORY OF PRESENT ILLNESS: 28-year-old female presents with a sore throat and history of strep exposure. She notes increased pain with swallowing. She denies fever or chills. REVIEW OF SYSTEMS: Respiratory: No cough, no dyspnea. Cardiovascular: No chest pain, no palpitations. Gastrointestinal: No vomiting, no abdominal pain. Musculoskeletal: No back pain. Allergies: Coded Allergies: amoxicillin (Verified Allergy, Mild, 03/06/18) metoclopramide (Verified Allergy, Mild, 03/06/18) prochlorperazine (Verified Allergy, Mild, 03/06/18) azithromycin (Verified Allergy, Unknown, 03/06/18) ketorolac (Verified Allergy, Unknown, 03/06/18) Home Meds Active Scripts Hydrocodone Bit/Acetaminophen (NORCO 5-325 TABLET) 1 Each Tablet, 1 EACH PO Q4H Y for PAIN, #8 TAB Prov:JERRI COLVIN DO 03/17/18 Cefuroxime Axetil (CEFUROXIME) 500 Mg Tablet, 500 MG PO BID for infection, #14 TAB Prov:JERRI COLVIN DO 03/17/18 Reported Medications Hydroxyzine Pamoate (VISTARIL) 25 Mg Capsule, 25 MG PO Q4H Y for ANXIETY, CAPSULE 03/08/18 Mirtazapine (REMERON) 15 Mg Tab.rapdis, 15 MG PO QHS 03/08/18 Testosterone Cypionate (Testone Cik) 200 Mg/1 Ml Kit, 0.4 ML IM [id number] 03/06/18 Discontinued Reported Medications Multivits,Ca,Minerals/Iron/Fa (THERA-M TABLET) 1 Each Tablet, 1 EACH PO DAILY 03/08/18 Reviewed Nurses Notes: Yes Old Medical Records Reviewed: Yes Hx Smoking: No Smoking Status: Never Smoker Exposure to Second Hand Smoke?: No Hx Substance Use Disorder: Yes (marijuana) Hx Alcohol Use: Yes Constitutional Vital Sign - Last 24 Hours 03/17/18 03/17/18 04:54 05:44 Temp 99.0 Pulse 106 95 Resp 16 16 B/P (MAP) 123/77 99/65 (76) Pulse Ox 91 93 O2 Delivery Room Air Room Air Physical Exam General Appearance: The patient is alert, has no immediate need for airway protection and no current signs of toxicity. Mild distress HEENT: Pupils equal and round no injection. TMs normal, oropharynx with moderate erythema, tonsillar heart disease noted., Trace exudate Respiratory: Chest is non tender, lungs are clear to auscultation. Cardiac: regular rate and rhythm Gastrointestinal: Abdomen is soft and non tender, no masses, bowel sounds normal. No splenomegaly Musculoskeletal: Neck: Neck is supple and non tender.+ Lymphadenopathy Extremities have full range of motion and are non tender. Skin: No rashes or lesions. DIFFERENTIAL DIAGNOSIS: After history and physical exam differential diagnosis was considered for sinusitis, pharyngitis, viral syndrome, mononucleosis, otitis media, lymphadenopathy Medical Decision Making ED Course/Re-evaluation ED Course Patient was admitted to an examination room. H&P was done. The differential diagnoses was considered. On clinical examination. Patient has acute pharyngitis. She has strep exposure. She'll be treated with Ceftin and hydrocodone for pain relief. Patient advised to take ibuprofen 200 mg 3 tablets 3 times a day. Decision to Disposition Date: March 17, 2018 Decision to Disposition Time: 05:09 Depart Departure Latest Vital Signs Vital Signs Date Time Temp Pulse Resp B/P (MAP) Pulse Ox O2 Delivery O2 Flow Rate FiO2 03/17/18 05:44 95 16 99/65 (76) 93 Room Air 03/17/18 04:54 99.0 Impression: Primary Impression: Pharyngitis, acute Additional Impression: Strep throat exposure Condition: Improved Disposition: HOME OR SELF-CARE New Scripts Hydrocodone Bit/Acetaminophen (NORCO 5-325 TABLET) 1 Each Tablet 1 EACH PO Q4H Y for PAIN, #8 TAB Prov: JERRI COLVIN DO 03/17/18 Cefuroxime Axetil (CEFUROXIME) 500 Mg Tablet 500 MG PO BID for infection, #14 TAB Prov: JERRI COLVIN DO 03/17/18 Patient Instructions: Strep Throat (ED) Additional Instructions: Take ibuprofen 200 mg 3 tablets 3 times a day with food Follow-up with primary care if unimproved in 3-5 days Problem Qualifiers Primary Impression: Pharyngitis, acute Pharyngitis/tonsillitis etiology: streptococcus Qualified Codes: J02.0 - Streptococcal pharyngitis JERRI COLVIN DO March 17, 2018 05:05
[2018-03-17] MEDS ORDERED: CEFUROXIME AXETIL 250 MG TAB PO ONE (05:10)
[2018-03-17] MEDS ORDERED: ACET/HYDROC 5/325MG TH ER ONLY 2 TAB/BOTTLE PO ONE (05:10)
[2018-03-17] MEDS ORDERED: DEXAMETHASONE 4 MG TAB PO ONE (05:10)
[2018-03-17] MEDS ORDERED: HYDR-4309 PO (05:13)
[2018-03-17] MEDS ORDERED: CEFU500T10 PO (05:13)
[2018-03-17 05:44] VITALS: BP 99/65
== END 2018-03-17 05:43 | disposition home or self-care (01) ==
LOC: ER 04:53
DX: J02.0 Streptococcal pharyngitis (principal)
CPT/HCPCS: 99284; J8540